=== PATIENT | male | born 1975 | race Caucasian/White ===

== ENCOUNTER 2019-06-28 14:54 | Emergency (ER) | payer SELFPAY ==
[2019-06-28 14:54] VITALS: BP 160/88; PULSE 101; RESP 16; TEMP 36.6; O2SAT 95; BMI 34.3
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
[2019-06-28 15:54] VITALS: BP 149/99; PULSE 91; RESP 18; O2SAT 97
[2019-06-28 15:55] VITALS: RESP 18
== END 2019-06-28 15:55 | disposition home or self-care (01) ==
PROVIDERS: Emergency Provider Emergency Medicine
DX: S40.011A Contusion of right shoulder, initial encounter (principal); V89.2XXA Person injured in unspecified motor-vehicle accident, traffic, initial encounter
CPT/HCPCS: 73030; 99282